=== PATIENT | male | born 1935 | race Caucasian/White ===

== ENCOUNTER 2016-06-09 14:09 | Observation (INO) | payer MEDICARE ==
--- OUTSIDE RECORDS SUMMARY | 2016-06-09 14:13 | XMS REPORT | Continuity of Care Document ---
:1935 Author Organization [facility] ([facility]) Address [address] [place] [address] Phone [phone] Care Team Providers Name Role Phone Unavailable Primary Care Provider Unavailable Source Comments This disclosure is being made pursuant to the Care Everywhere program, applicable federal and state laws, and may not contain all informaitonavailable regarding this patient.[facility] ([facility]) Active Allergies and Adverse Reactions No Active Allergies Current Medications Not on file Active Problems Problem Noted Date Painful respiration 10/23/2005 Social History Tobacco Use Types Packs/Day Years Used Date Never Assessed Last Filed Vital Signs Vital Sign Reading Time Taken Blood Pressure 115/74 12/18/2005 10:36 AM CDT Pulse 67 12/18/2005 10:36 AM CDT Temperature 36.2 C (97.16 F) 12/18/2005 10:36 AM CDT Respiratory Rate 16 11/02/2005 12:00 PM CDT Height 1.75 m (5' 8.89") 12/18/2005 10:34 AM CDT Weight 46.199 kg (101 lb 13.6 oz) 12/18/2005 10:34 AM CDT Body Mass Index 15.09 12/18/2005 10:34 AM CDT Oxygen Saturation - - Plan of Care Health Maintenance Due Date Last Done Comments Hepatitis B Vaccine (1 of 3 - Primary Series) 1935 Tdap Vaccine 08/01/1946 Lipid Disorder Screening 08/01/1953 Td Vaccine 08/01/1953 Colonoscopy 08/01/1985 Zoster Vaccine 1995 Pneumococcal Vaccine (1 of 2 - PCV13) 08/01/2000 Influenza Vaccine: Seasonal (#1) 10/01/2015 Results from Last 3 Months Not on file
--- OUTSIDE RECORDS SUMMARY | 2016-06-09 15:07 | XMS REPORT | Continuity of Care Document ---
:1935 Author Organization [facility] ([facility]) Address [address] [place] [address] Phone [phone] Care Team Providers Name Role Phone Unavailable Primary Care Provider Unavailable Source Comments This disclosure is being made pursuant to the Care Everywhere program, applicable federal and state laws, and may not contain all informaitonavailable regarding this patient.[facility] ([facility]) Active Allergies and Adverse Reactions No Active [...]
[2016-06-09] MEDS ORDERED: RINGERS SOLUTION,LACTATED 1,000 ML IV STA (15:09)
[2016-06-09 16:08] LABS: Hematocrit 38.8 % (42.0-52.0); Hemoglobin 12.4 gm/dL (13.5-18.0); Mean Cell Volume 99.7 fl (78-100); Mean Corpuscular Hemoglobin 31.9 pg (27-31); Mean Platelet Volume 8.2 fl (6.0-9.5); Neutrophil # 8.8 K/mm3 (1.3-6.0); Neutrophil % 86.4 % (42-75.0); Platelet Count 358 K/mm3 (150-450); Red Blood Count 3.89 M/mm3 (4.7-6.0); Red Cell Distribution Width 12.3 % (11.5-14.0); White Blood Count 10.2 K/mm3 (4.0-10.5)
[2016-06-09 16:20] LABS: Albumin * 3.6 gm/dl (3.4-5.0); Anion Gap 11.4 mmol/L (6.8-13.8); Bilirubin, Total 0.6 mg/dL (0.0-1.1); Ca. Corrected For Albumin 9.7 mg/dL (8.4-10.2); Calcium * 9.7 mg/dL (7.9-10.9); Carbon Dioxide 36.7 mmol/L (24-32.6); Potassium 4.1 mmol/L (3.4-4.6); Total Protein 7.7 gm/dL (6.2-8.2)
--- NOTE | 2016-06-09 16:25 | HP ---
Chief Complaint - Chief Complaint Date of Service: 06/09/16 Time of Service: 16:20 Chief Complaint: Difficulty in swallowing liquids for the last 24 hours History of Present Illness: Patient is a 80-year-old WM with a history of severe COPD on 2 L of O2, GERD, weight loss, JOSE who came into the office for evaluation difficulty in swallowing liquids and solids with started on 06/08/2016. He does not recall choking on any particular foods. He drank coffee this morning and threw it up five minutes later. He did not eat or drink after that. Chest x-ray showed severe COPD w/o infiltrate. Patient was admitted into observation and started on LR 200 mL/ minute. Discussed the patient with Dr. Handley [surgery] for possible EGD/ dilatation on 06/09/2016. Routine labs were ordered. - Patient's Past Medical History Additional info: PAST MEDICAL HISTORY: Severe/end-stage COPD on 2L of oxygen; pulmonary cachexia; GERD, H/O Zenker's diverticulum with dysphagia, JOSE, EtOH abuse. Additional Info: PAST SURGICAL HISTORY: vasectomy; ; colonoscopy 07/1998-hyperplastic polyp and chronic inflammation; endoscopic laser diverticulectomy of Zenker's diverticulum-2005. - Family History Father Family History - Medical: - 94old age Mother Family History - Medical: - 93-old age - Social History Living Situations: spouse Abuse History: No History of abuse Psych History: No pertinent hx Alcohol Use: occasionally - 10-14 beers /day Drug Use: none Review Of Systems (GEN) - Review of Systems Generalized/Overall Review: Present: Weight loss. Absent: Weakness, Chills, Fever Respiratory: Present: Shortness of Breath Cardiac: Absent: Chest Pain, Edema Abdominal: Absent: Abdominal Pain, Constipation Allergies/Adverse Reactions: Allergies Allergy/AdvReac Type Severity Reaction Status Date / Time No Known Allergies Allergy Verified 06/09/16 15:52 Home Medications: HOME MEDICATIONS Lovastatin 40 mg PO DAILY 10/12/13 [Last Taken Unknown] Pramipexole Di-HCl [Mirapex] 0.5 mg PO DAILY 10/12/13 [Last Taken Unknown] Tamsulosin HCl [Flomax] 0.4 mg PO DAILY@1700 #0 cap.sr.24h 10/20/13 [Last Taken Unknown] Budesonide [Pulmicort Respules] 2 ml IH BID 09/22/14 [Last Taken Unknown] Albuterol Sulfate [Proair Hfa] 2 puff INH Q6H PRN 06/09/16 [Last Taken Unknown] Cholecalciferol [Vitamin D] 1 tab PO DAILY 06/09/16 [Last Taken Unknown] Escitalopram Oxalate [Lexapro] 10 mg PO DAILY 06/09/16 [Last Taken Unknown] Finasteride [Proscar] 5 mg PO DAILY 06/09/16 [Last Taken Unknown] Formoterol Fumarate [Perforomist] 2 ml IH BID 06/09/16 [Last Taken Unknown] Multivit-Min36/Iron/Folic Acid [Geritol Complete Tablet] 1 each PO DAILY [Last Taken Unknown] Tiotropium [place] [Spiriva] 1 cap INH DAILY PRN 06/09/16 [Last Taken Unknown] Exam - Exam Vital Signs: Vital Signs - Last Taken Temp 36.4 C L 09/29/14 12:45 Pulse Resp BP 127/76 09/29/14 13:15 Pulse Ox Constitutional: Present: Elderly, Thin and frail - cachectic on 2L O2 ENT Exam: Present: hearing grossly normal Eye Exam: bilateral eye: PERRL, EOMI Respiratory: Present: decreased breath sounds. Absent: respiratory distress Cardiovascular/Chest: Present: regular rate, rhythm. Absent: tachycardia Abdomen: Present: Normal bowel sounds, soft, nontender Extremity: Present: non-tender, normal inspection Neurologic: Present: alert, oriented x 3 Eye contact: Present: cooperative, good eye contact Thoughts: Present: normal mood /affect Diagnostic Studies: Laboratory Tests 06/09/16 16:00 WBC 10.2 Hgb 12.4 L Hct 38.8 L Plt Count 358 06/09/16 16:00 Plasma Sodium 142 Potassium 4.1 Chloride 98 Carbon Dioxide 36.7 H BUN 22 Creatinine 0.71 Est GFR (Non-Af Amer) 113 Random Glucose 87 Calcium Adj for Albumin 9.7 Total Bilirubin 0.6 AST 27 ALT 24 Alkaline Phosphatase 98 Total Protein 7.7 Albumin 3.6 Assessment/Plan - Narrative Narrative: 1. Dysphagia for solids and liquids. Ringers lactate at 200 mL an hour. NPO for now. Dr. Handley saw the patient. possible EGD / dilatation . Patient at low risk for complications. 2. Severe COPD on 2 L O2: Continue home treatments. 3. Weight loss: Presumed to be due to severe COPD. However patient has been having difficulty in swallowing for several months. 4. Generalized anxiety disorder. Chronic and stable. 5. H/O Zenker's diverticulum. S/P endoscopic laser diverticulectomy 2005.
[2016-06-09] MEDS: RINGERS SOLUTION,LACTATED 1,000 ML IV PRN ×2 (16:47→19:05)
[2016-06-09] MEDS ORDERED: RINGERS SOLUTION,LACTATED 900 ML IV ONE (17:15)
[2016-06-09] MEDS ORDERED: PANTOPRAZOLE SODIUM 40 MG in NORMAL SALINE 100 ML IV SCH (18:30)
[2016-06-09] MEDS ORDERED: TIOTROPIUM BROMIDE 5 CAP INHALER IH PRN (19:12)
[2016-06-09] MEDS ORDERED: ALBUTEROL SULFATE 200 PUFF INHALER IH PRN (19:12)
--- NOTE | 2016-06-09 19:38 | OR ---
Operative Report - Dictated Report Narrative: Operative Report Date of operation 06/09/2016 Preoperative diagnosis: Esophageal obstruction Postoperative diagnosis: Esophageal obstruction from stricture and impacted food Operation: EGD with esophageal dilation to 18 mm Surgeon: Dr Handley Anesthesia: Gen. niko Wheeler CRNA Indications for procedure: The patient is an 80-year-old male who presented to Dr. Roberts's office earlier today with a sudden onset history of inability to swallow. His last solid food was yesterday. Today he tried some coffee vomited. He has a past history of Zenker's diverticulectomy in 2005. He is apparently had some progressive dysphagia but is always had the material pass by drinking liquids. Findings: Impacted food in the esophagus with distal esophageal narrowing. Normal appearing stomach. Successful dilation of the GE junction to 18 mm. Residual food in the esophagus at the end of the case. Whether this represents achalasia/esophageal dysmotility or obstruction from stricture remains to be seen. Narrative of procedure: The patient was identified preoperatively, and prior to the administration of anesthetic a multidisciplinary timeout was observed With the patient in the recumbent position, a bite-block was placed, intravenous sedation was administered, and the patient's eyes covered with a towel. The flexible fiberoptic gastroscope was advanced into the posterior pharynx which appeared normal. The supraglottic larynx appeared normal. The cords appeared normal, moved well, and opposed in the midline. The scope was advanced under direct vision into the proximal esophagus which appeared normal, however at approximately 20 cm food and saliva was encountered indicating distal obstruction. Accordingly general endotracheal anesthetic was administered. The scope was then readvanced into the posterior pharynx. The tube was seen to be in good position. Scope was then advanced into the esophagus. The esophagus appeared freely distensible with normal mucosa, however there was impacted food throughout. The scope could be advanced alongside the food bolus. The esophageal mucosa appeared normal down to the gastroesophageal junction where impacted food in a very narrow opening was noted. The area was lavaged with saline and the fragments of food were manipulated with biopsy forceps until they were passed through into the stomach. The scope was then advanced into the stomach which was insufflated with air. The stomach was seen to contain liquid and food particles however the mucosa appeared grossly normal. The pylorus appeared patent. A balloon dilator was then deployed in the stomach and withdrawn to lie across the narrowed GE junction which was dilated in stages to 18 mm. The balloon was then passed freely through the area. The patient was then placed in a sitting position and the endoscope withdrawn into the proximal esophagus and as much food as possible was washed distally. The entire esophagus could not be cleared of food particles, however none of those remaining were too large to pass through the dilated GE junction. As much insufflated air and liquid was removed as possible. The scope was withdrawn from the patient and the procedure terminated The patient tolerated the anesthetic and procedure well without complication and was transferred to the recovery room awake, extubated, and in stable condition. I discussed the findings with the patient and his . They were given copies of the photographs which appear in the medical record. RECOMMENDATION: The patient should be kept in an upright position tonight and allowed only liquids by mouth. PO medication should be held tonight with reassessment of swallowing in the morning. Additional evaluation of esophageal clearance with contrast study may be required tomorrow. Reviewed and electronically signed
[2016-06-09] MEDS: BUDESONIDE 0.5 MG/2 ML VIAL.NEB IH SCH (20:16)
[2016-06-09] MEDS: FORMOTEROL FUMARATE 20 MCG/2 ML VIAL IH SCH (20:17)
[2016-06-10] MEDS: RINGERS SOLUTION,LACTATED 1,000 ML IV PRN (03:22)
[2016-06-10] MEDS: FORMOTEROL FUMARATE 20 MCG/2 ML VIAL IH SCH (06:26)
[2016-06-10] MEDS: BUDESONIDE 0.5 MG/2 ML VIAL.NEB IH SCH (06:26)
[2016-06-10] MEDS ORDERED: ALBUTEROL SULFATE 2.5 MG/3 ML VIAL.NEB IH PRN (06:34)
[2016-06-10] MEDS ORDERED: SIMVASTATIN 20 MG TABLET PO SCH ×2 (09:00→21:00)
[2016-06-10] MEDS ORDERED: ESCITALOPRAM OXALATE 10 MG TAB PO SCH (09:00)
[2016-06-10] MEDS ORDERED: CHOLECALCIFEROL 1,000 UNIT CAPSULE PO SCH (09:00)
[2016-06-10] MEDS ORDERED: PRAMIPEXOLE DI-HCL 0.5 MG TABLET PO SCH (09:00)
[2016-06-10] MEDS ORDERED: MULTIVIT WITH IRON-MINERALS 1 TAB TABLET PO SCH (09:00)
[2016-06-10] MEDS ORDERED: FINASTERIDE 5 MG TABLET PO SCH (09:00)
[2016-06-10 10:27] VITALS: BP 111/61
--- NOTE | 2016-06-10 12:01 | DS ---
(1) Food impaction of esophagus Problem: Acute Qualifiers: Encounter type: initial encounter Qualified Code(s): T18.128A - Food in esophagus causing other injury, initial encounter (2) Esophageal dilatation Diagnosis(s): due to distal esophageal narrowing. Problem: Acute (3) Weight loss, abnormal Problem: Chronic (4) copd on 2L O2 Problem: Chronic (5) Restless legs syndrome (RLS) Problem: Acute (6) BPH (benign prostatic hypertrophy) Problem: Chronic Qualifiers: Prostatic enlargement morphology: unspecified morphology Lower urinary tract symptom presence: presence of symptoms unspecified Qualified Code(s): N40.0 - Benign prostatic hyperplasia without lower urinary tract symptoms (7) Anxiety and depression Problem: Chronic Description of Stay: DATE OF ADMISSION: 06/09/2016. DATE OF DISCHARGE: 06/10/2016. HOSPITAL COURSE: Spencer Matos is a 80-year-old WM with a history of severe COPD on 2 L of O2, GERD, weight loss, JOSE who came into the office for evaluation difficulty in swallowing liquids and solids with started on 06/08/2016. He does not recall choking on any particular foods. He drank coffee this morning and threw it up five minutes later. He did not eat or drink after that. Chest x-ray showed severe COPD w/o infiltrate. Patient was admitted into observation and started on LR 200 mL/ minute. Discussed the patient with Dr. Handley [surgery] for possible EGD/ dilatation on 06/09/2016. Routine labs were ordered. Surgical history is significant for endoscopic laser diverticulectomy of Zenker's diverticulum in 2006. Patient underwent EGD with esophageal dilatation up to 18 mm on 06/09/2016. Findings included: Impacted food in the esophagus with distal esophageal narrowing; Normal appearing stomach. Residual food in the esophagus was seen after dilatation was done. Patient tolerated the procedure well. He was kept NPO that night and was able to swallow on 06/10/2016 without problems. Differential diagnoses included esophageal dysmotility/achalasia/obstruction from stricture. This was discussed in detail with the patient and he was also scheduled for an esophagogram on an outpatient basis. He was also started on mirtazapine 7.5 mg at bedtime for anxiety and depression and escitolopram was discontinued. The patient was discharged in a stable condition on 06/10/2016. Greater than 30 minutes was spent in examining the patient, plan of care, reconciliation of medications, preparation and dictation of discharge summary. Procedures Performed: see notes below - EGD with dilatation [ ] Results and Findings: Laboratory Tests 06/09/16 16:00 WBC 10.2 Hgb 12.4 L Hct 38.8 L Plt Count 358 06/09/16 16:00 Plasma Sodium 142 Potassium 4.1 Chloride 98 Carbon Dioxide 36.7 H BUN 22 Creatinine 0.71 Est GFR (Non-Af Amer) 113 Random Glucose 87 Calcium Adj for Albumin 9.7 Total Bilirubin 0.6 AST 27 ALT 24 Alkaline Phosphatase 98 Total Protein 7.7 Albumin 3.6 CXR: PA and lateral: 06/09/2016: 1. Hyperinflation with mild fibrotic changes. Discharge Disposition: Home self care Disposition: Home self-care Condition: Undetermined Discharge Activity: Activity as tolerated Discharge Diet: Other - dysphagia 3 diet - can include boost, ensure, milk shakes etc. Referrals: Terrence Saleh MD [Primary Care Provider] - Consultation Done:: Dr. Nj Handley MD Additional Patient Instructions (free text): Appointment with Dr. Saleh after esophagogram or earlier if signs and symptoms returned [difficulty in swallowing]. Dysphagia 3 diet[please given information on it to patient and ]. Esophagram- 06/25 at 9:00 nothing to eat or drink after midnight 06/24 till after test. Follow up with Dr. Saleh 06/30 at 10:30. New medication: Mirtazapine 7.5 mg at bedtime[ to increase appetite and for anxiety]. Medications discontinued: Escitalopram 10 mg daily. Prescriptions (Any new or edited meds): Mirtazapine 7.5 mg PO HS #30 tablet Complete Home Medications List: Complete Home Medication List: Lovastatin 40 mg PO DAILY 10/12/13 Pramipexole Di-HCl [Mirapex] 0.5 mg PO DAILY 10/12/13 Tamsulosin HCl [Flomax] 0.4 mg PO DAILY@1700 #0 cap.sr.24h 10/20/13 Budesonide [Pulmicort Respules] 2 ml IH BID 09/22/14 Albuterol Sulfate [Proair Hfa] 2 puff INH Q6H PRN 06/09/16 Cholecalciferol [Vitamin D] 1 tab PO DAILY 06/09/16 Finasteride [Proscar] 5 mg PO DAILY 06/09/16 Formoterol Fumarate [Perforomist] 2 ml IH BID 06/09/16 Multivit-Min36/Iron/Folic Acid [Geritol Complete Tablet] 1 each PO DAILY Tiotropium [place] [Spiriva] 1 cap INH DAILY PRN 06/09/16 Mirtazapine 7.5 mg PO HS #30 tablet 06/10/16 Amb Orders for Discharge: Esophagram Complete Time Frame: 3 Weeks, Location: Determined By Patient
[2016-06-10] MEDS ORDERED: TAMSULOSIN HCL 0.4 MG CAP.SR.24H PO SCH (17:00)
--- NOTE | 2016-06-15 10:57 | CONS ---
HPI - General Date of Service: 06/09/16 - patient seen in Dr Roberts's office approximately 2 PM Source: patient, family, RN/MD, RN notes reviewed, old records Exam Limitations: no limitations - History of Present Illness Initial Comments: The patient is an 80-year-old male who presented to Dr. Roberts's office with the complaint of inability to swallow. He ate some eggs and hashbrowns yesterday, but this morning when he went to drink coffee he started to vomit, and he has been unable to keep anything down. He is currently handling his secretions. He complains of discomfort in the subxiphoid area. Severity: severe Modifying Factors - (Worsens): Reports: eating Modifying Factors - (Improves): Reports: other - Not swallowing Associated Symptoms: other - He has not had fever or chills. He does not think he has aspirated. He has no abdominal pain. He is chronically short of breath and on nasal oxygen Allergies/Adverse Reactions: Allergies No Known Allergies Allergy (Verified 06/09/16 15:52) Home Medications: Home Medications Medication Instructions Recorded Last Taken Lovastatin 40 mg PO DAILY 10/12/13 Unknown Pramipexole Di-HCl [Mirapex] 0.5 mg PO DAILY 10/12/13 Unknown Budesonide [Pulmicort Respules] 2 ml IH BID 09/22/14 Unknown Albuterol Sulfate [Proair Hfa] 2 puff INH Q6H PRN 06/09/16 Unknown Cholecalciferol [Vitamin D] 1 tab PO DAILY 06/09/16 Unknown Finasteride [Proscar] 5 mg PO DAILY 06/09/16 Unknown Formoterol Fumarate [Perforomist] 2 ml IH BID 06/09/16 Unknown Multivit-Min36/Iron/Folic Acid 1 each PO DAILY 06/09/16 Unknown [Geritol Complete Tablet] Tiotropium [place] [Spiriva] 1 cap INH DAILY PRN 06/09/16 Unknown - Patient's Past Medical History Patient History - Medical: Anxiety, Depression, GERD Patient History - Cardiac/Respiratory: COPD, Hyperlipidemia, Home O2 Use, CPAP/ BiPAP Home Use Patient History - Cancer: No Hx of Cancer Patient History - Surgical Procedures: Colonoscopy, Vasectomy, Other - He had a laser resection of a Zenker's diverticulum in 2005 - Family History Father Family History - Medical: - 94old age Mother Family History - Medical: - 93-old age - Social History Living Situations: spouse Abuse History: No History of abuse Psych History: No pertinent hx Smoking Status: Former smoker Have you smoked in the past 12 months: No Do you dip or chew tobacco: No Patient requests Smoking Cessation Consult: No Initiate information on Smoking Cessation: No Alcohol Use: occasionally - 10-14 beers /day Drug Use: none - Immunizations Immunizations Up to Date: Yes Hx Pneumococcal Vaccination: Yes - 2014 at [facility] History of Influenza Vaccine: Yes - December 2015 at [facility] Procedures ARTERIAL BLD GAS MEASURE (10/12/13) CYSTOSCOPY NEC (09/29/14) Review of Systems - Review of Systems Generalized/Overall Review: Present: Weakness EENTM: Present: No Symptoms Reported Respiratory: Present: Shortness of Breath Cardiac: Absent: Chest Pain, Palpitations Abdominal: Present: Nausea, Vomiting, Other - Unable to swallow. Absent: Abdominal Pain Genitourinary: Present: No Symptoms Reported Musculoskeletal: Present: No Symptoms Reported Neurological: Present: No Symptoms Reported Skin: Present: No Symptoms Reported Physical Examination - Exam Vital Signs: Vital Signs - Last Taken BP 108/58 P 99 R 18 Wt 38.7 kg Ht 170.1 cm afebrile Constitutional: Present: Alert, Oriented x3, Cooperative, Thin and frail - Cachectic ENT Exam: Present: normal ENT inspection, hearing grossly normal Eye Exam: bilateral eye: normal inspection Neck: Present: full range of motion, normal inspection Breasts: Present: Exam deferred Respiratory: Present: lungs clear Cardiovascular/Chest: Present: regular rate, rhythm Abdomen: Present: soft, nontender /Rectal: Present: Exam deferred Extremity: Present: normal range of motion, no pedal edema, no calf tenderness Skin Exam: Present: normal color Neurologic: Present: science writer II-XII nml as tested, no motor/sensory deficits Appearance: Present: other - Cachectic Eye contact: Present: cooperative, good eye contact, normal speech Thoughts: Present: normal thought pattern - Assessments/Findings (1) Dysphagia Diagnosis(s): Whether this represents distal esophageal stricture from acid peptic disease or tumor accounting for progressive dysphagia and weight loss, recurrence of a problem related to his Zenker's diverticulum, or an acute episode of esophageal obstruction from foreign body is unclear. Although he does have a history of Zenker's diverticulum, his discomfort is at the subxiphoid level suggesting distal stricture or tumor. He has not aspirated and is handling his secretions. RECOMMEND: I explained what was involved with esophagoscopy to evaluate the problem with possible foreign body removal and/or dilation if appropriate. Dr. Roberts is making arrangements have the patient placed in the hospital at nothing by mouth status, I will discuss the case with anesthesia, and schedule esophagoscopy for later today Problem: Acute
== END 2016-06-10 15:10 | disposition home or self-care (01) ==
LOC: RAD 14:09 → MS 15:04
PROVIDERS: ADMIT Internal Medicine; ATTEND Internal Medicine
PROC: 0DC48ZZ Extirpation of Matter from Esophagogastric Junction, Via Natural or Artificial Opening Endoscopic (ICD-10-PCS; 2016-06-09)
PROC: 0D748ZZ Dilation of Esophagogastric Junction, Via Natural or Artificial Opening Endoscopic (ICD-10-PCS; principal; 2016-06-09 16:30)
DX: T18.128A Food in esophagus causing other injury, initial encounter (principal); K22.2 Esophageal obstruction; R63.4 Abnormal weight loss; J44.9 Chronic obstructive pulmonary disease, unspecified; G25.81 Restless legs syndrome; N40.0 Benign prostatic hyperplasia without lower urinary tract symptoms; F41.8 Other specified anxiety disorders
CPT/HCPCS: 36415; 43247; 43249; 71020; 80053; 85025; 94640; 94660; 96365; G0378